=== PATIENT | female | born 1985 | race African-American/Black ===

== ENCOUNTER 2020-08-26 12:09 | Emergency (ER) | payer MEDICAID ==
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
== END 2020-08-26 13:30 | disposition home or self-care (01) ==
LOC: JD.ED 12:09
DX: T21.22XA Burn of second degree of abdominal wall, initial encounter (principal); Z72.0 Tobacco use; X16.XXXA Contact with hot heating appliances, radiators and pipes, initial encounter
CPT/HCPCS: 99283

== ENCOUNTER 2020-12-25 10:23 | Emergency (ER) | payer OTHER ==
[2020-12-25] MEDS ORDERED: Ketorolac 60 MG/2 ML SDV IM ONE (11:25)
--- NOTE | 2020-12-25 11:32 | EDM.PDOC ---
ED HPI GENERAL MEDICAL PROBLEM - General Chief Complaint: Abdominal Pain Stated Complaint: MENSTRUAL CRAMPING Time Seen by Provider: 12/25/20 11:10 Source of Information: Reports: Patient, RN Notes Reviewed History Limitations: Reports: No Limitations - History of Present Illness INITIAL COMMENTS - FREE TEXT/NARRATIVE: Patient is a 35-year-old female who presents to the ER for the evaluation of her dysmenorrhea. Patient notes this is an ongoing issue for her. Her family recently moved from [place] to [place], and she is not been able to set up with SOILS TECHNICIAN or primary care at this time. She does plan on getting seen at the [facility] for those purposes. States that she has been using Tylenol and ibuprofen quite a bit, and she thinks that she might be taking too much, she notes that is really not helping much at all. She did have a LEEP procedure done years ago, and it has created quite a bit of scar tissue and this is what happens when she starts her menses. Patient denies any other sick-like symptoms, fever/chills, cough/shortness of breath, nausea/vomiting/diarrhea. She has been told that she needs a hysterectomy, but again has not been able to follow-up with this. 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 ED EXAM, RENAL/ - Physical Exam Exam: See Below Exam Limited By: No Limitations General Appearance: Alert, WD/WN, No Apparent Distress Respiratory/Chest: No Respiratory Distress, Lungs Clear, Normal Breath Sounds, No Accessory Muscle Use, Chest Non-Tender Cardiovascular: Normal Peripheral Pulses, Regular Rate, Rhythm, No Edema GI/Abdominal: Normal Bowel Sounds, Soft, No Distention, No Mass, Tender (suprapubic/pelvic) Neurological: Alert, Oriented, Normal Cognition, No Motor/Sensory Deficits Psychiatric: Normal Affect, Normal Mood Skin Exam: Warm, Dry, Intact, Normal Color, No Rash Course - Vital Signs Last Recorded V/S: Last Vital Signs Temp 97.4 F 12/25/20 10:44 Pulse 76 12/25/20 10:44 Resp 16 12/25/20 10:44 BP 174/112 H 12/25/20 10:44 Pulse Ox 100 12/25/20 10:44 - Orders/Labs/Meds Meds: Medications Discontinued Medications Generic Name Dose Route Start Last Admin Trade Name Freq PRN Reason Stop Dose Admin Ketorolac Tromethamine 60 mg 12/25/20 11:25 12/25/20 11:34 Ketorolac 60 Mg/2 Ml Sdv IM 12/25/20 11:26 60 mg ONETIME ONE Administration - Re-Assessments/Exams Free Text/Narrative Re-Assessment/Exam: 12/25/20 11:38 Patient presents to the ER for her dysmenorrhea, we will go ahead and give her an injection of Toradol in the ER. And plan to give her some Toradol tablets to take at the onset of menses pain. Patient is okay with this plan and verbalized understanding. She does understand that she will need to follow-up with SOILS TECHNICIAN or family practice for ongoing management. Departure - Departure Time of Disposition: 11:30 Disposition: Home, Self-Care 01 Condition: Good Clinical Impression: Dysmenorrhea - Discharge Information *PRESCRIPTION DRUG MONITORING PROGRAM REVIEWED*: No *COPY OF PRESCRIPTION DRUG MONITORING REPORT IN PATIENT BRIDGER: No Prescriptions: Ketorolac [Toradol] 10 mg PO ASDIRECTED PRN #15 tab PRN Reason: Abdominal Pain Instructions: Dysmenorrhea, [id number] Referrals: PCP,None [Primary Care Provider] - Forms: ED Department Discharge Additional Instructions: You were evaluated in the ER today for your painful periods. You were given an injection of Toradol, and given some tablets of Toradol to take at the onset of menstrual pain. Do not take this more than 3 days in a row. Medication has been electronically prescribed to the [place] pharmacy, you may go there Sunday morning to picker and packer the prescription and take as directed. Recommend you set up with SOILS TECHNICIAN of choice, there are few providers in the area, our clinic number [phone]. The [facility] at [phone]. Any family practice provider or SOILS TECHNICIAN should be able to provide you with some of the services. Please return to the ER at any time if symptoms change or worsen. Sepsis Event Note (ED) - Evaluation Sepsis Screening Result: No Definite Risk - Focused Exam Vital Signs: Vital Signs Temp Pulse Resp BP Pulse Ox 12/25/20 10:44 97.4 F 76 16 174/112 H 100
== END 2020-12-25 11:57 | disposition home or self-care (01) ==
LOC: JD.ED 10:23
DX: N94.6 Dysmenorrhea, unspecified (principal)
CPT/HCPCS: 96372; 99283; J1885

== ENCOUNTER 2021-01-12 15:06 | Emergency (ER) | payer MEDICAID, OTHER ==
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
== END 2021-01-12 16:00 | disposition home or self-care (01) ==
LOC: JD.ED 15:06
DX: N94.6 Dysmenorrhea, unspecified (principal); Z72.0 Tobacco use
CPT/HCPCS: 99283

== ENCOUNTER 2021-01-30 11:03 | Emergency (ER) | payer MEDICAID ==
[2021-01-30] MEDS ORDERED: Ketorolac 60 MG/2 ML SDV IM ONE (11:26)
--- NOTE | 2021-01-30 11:34 | EDM.PDOC ---
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 She has a history of cervical canal stenosis related to LEEP procedure done many years ago. Reports that she has chronic pelvic pain as her menstrual blood has difficulty exiting her uterus. She states the pressure eventually builds up and then her uterus for drain which gives her relief. States the last time that this occurred was about 4 days ago. She reports that she bleeds continuously throughout the month. She is aware that she needs to have hysterectomy completed, however is not able to do so at this time. She saw Dr. Crook at [facility] and had a Depo-Provera shot last week and attempt to stop her periods to alleviate the symptoms. This will not begin working for at least a month. She was seen here previously and prescribed tramadol and oxycodone which she states do not help all that much. She took a tramadol this morning. She only takes oxycodone she Osmanypedro has to. She has taken fcuh-you-dssgjdr Tylenol and ibuprofen. Denies any possibility of as she is not sexually active. She reports the pain that she is having is her typical pelvic pain related to her cervical canal stenosis. 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 Other INDUSTRIAL TRAINING SPECIALIST History: LEEP procedure Musculoskeletal History: Reports: Arthritis Psychiatric History: Reports: Addiction, Anxiety, Depression Other Psychiatric History: "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 ED EXAM, RENAL/ - Physical Exam Exam: See Below Exam Limited By: No Limitations General Appearance: Alert, WD/WN, No Apparent Distress Respiratory/Chest: No Respiratory Distress, Lungs Clear, Normal Breath Sounds, No Accessory Muscle Use, Chest Non-Tender Cardiovascular: Normal Peripheral Pulses, Regular Rate, Rhythm, No Edema, No Gallop, No JVD, No Murmur, No Rub GI/Abdominal: Normal Bowel Sounds, Soft, No Organomegaly, No Distention, No Abnormal Bruit, No Mass, Tender (Suprapubic tenderness) Neurological: Alert, Oriented, CN II-XII Intact, Normal Cognition, Normal Gait, Normal Reflexes, No Motor/Sensory Deficits Psychiatric: Normal Affect, Normal Mood Skin Exam: Warm, Dry, Intact, Normal Color, No Rash Course - Vital Signs Last Recorded V/S: Last Vital Signs Temp 98 F 01/30/21 11:12 Pulse 89 01/30/21 11:12 Resp 16 01/30/21 11:12 BP 133/90 01/30/21 11:12 Pulse Ox 100 01/30/21 11:12 - Orders/Labs/Meds Meds: Medications Discontinued Medications Generic Name Dose Route Start Last Admin Trade Name Johnny PRN Reason Stop Dose Admin Ketorolac Tromethamine 60 mg 01/30/21 11:26 01/30/21 11:44 Ketorolac 60 Mg/2 Ml Sdv IM 01/30/21 11:27 60 mg ONETIME ONE Administration - Re-Assessments/Exams Free Text/Narrative Re-Assessment/Exam: 01/30/21 12:16 Patient is feeling much better after the Toradol. We'll discharge her home. I will send prescription for ibuprofen 800s. Recommend taking these once or twice a day and then use tramadol or oxycodone as needed for breakthrough pain. Recommend follow-up with Dr. Crook should symptoms not improve with Depo- Provera. Return to ER as needed. Discharge instructions as documented. Departure - Departure Time of Disposition: 12:16 Disposition: Home, Self-Care 01 Condition: Good Clinical Impression: Severe dysmenorrhea - Discharge Information *PRESCRIPTION DRUG MONITORING PROGRAM REVIEWED*: No *COPY OF PRESCRIPTION DRUG MONITORING REPORT IN PATIENT BRIDGER: No Instructions: Dysmenorrhea Referrals: Nunu Coelho PA-C [Primary Care Provider] - Mirian Bell MD [Physician] - Forms: ED Department Discharge Additional Instructions: You were seen in the emergency department today for ongoing pelvic pain. While in the ER, you received an injection of Toradol which did help your symptoms. Prescription has been sent for ibuprofen 800 mg. Recommend using these routinely for pain as long as it does not cause significant abdominal upset. Take them with food. You may use your tramadol or oxycodone as needed for breakthrough pain. If symptoms fail to improve over the next few weeks, recommend follow-up with Dr. Crook. Return to ER as needed. Sepsis Event Note (ED) - Focused Exam Vital Signs: Vital Signs Temp Pulse Resp BP Pulse Ox 01/30/21 11:12 98 F 89 16 133/90 100
== END 2021-01-30 12:23 | disposition home or self-care (01) ==
LOC: JD.ED 11:03
DX: N94.6 Dysmenorrhea, unspecified (principal); E66.9 Obesity, unspecified; Z68.41 Body mass index [BMI] 40.0-44.9, adult; Z72.0 Tobacco use
CPT/HCPCS: 96372; 99283; J1885

== ENCOUNTER 2021-04-23 15:33 | Emergency (ER) | payer OTHER, MEDICAID ==
[2021-04-23] MEDS ORDERED: Gentamicin 0.3% Ophth Soln 5 ML Bottle EARRT ONE (16:23)
[2021-04-23] MEDS ORDERED: predniSONE 20 MG Tab PO ONE (16:26)
[2021-04-23] MEDS ORDERED: diphenhydrAMINE 50 MG Cap PO ONE (16:27)
--- NOTE | 2021-04-23 16:33 | EDM.PDOC ---
ED HPI GENERAL MEDICAL PROBLEM - General Chief Complaint: General Stated Complaint: POSS EAR INFECTION Time Seen by Provider: 04/23/21 16:35 Source of Information: Reports: Patient History Limitations: Reports: No Limitations - History of Present Illness INITIAL COMMENTS - FREE TEXT/NARRATIVE: 35-year-old female presents to the ED with 3 different complaints. First 1 is diffuse itching and swelling and skin rash noted mostly on her face and adjacent to her right eye that have developed over the last 24 hours. She indicates that she got 2 cats in her home over the last 48hours help with the most problem. She did not believe she was allergic to the cats. However she has developed hives along the mandible chin under her right eye and adjacent to the lateral right eye. Second problem is right ear pain. This started within the last 2 days and is gradually gotten worse. She felt it was likely related to the Problem as well however on examination she has no otitis externa of the right ear canal. Third problem is exacerbation of chronic low back pain with known herniated disc. She is started a new job actually working 2 jobs and spending long hours walking and standing on her feet which is aggravated her chronic low back pain. She states she used to be on gabapentin for this daily and would like to return to this medication until she can get into her primary care provider. Onset: Gradual Onset Date: 04/22/21 (Facial rash symptoms started yesterday. Right ear symptoms started 2 days ago. Low back pain has been chronic for the last couple of weeks and gradually getting worse) Duration: Getting Worse Location: Reports: Face (Rashes on her face along the mandible chin under her right eye and adjacent to the lateral right eye and she has right ear pain secondary to an otitis externa.), Back (Exacerbation of chronic low back pain) Quality: Reports: Other (Facial rash is itchy and burning somewhat. Very minimally painful. Is been present all day long and getting worse.) Severity: Moderate Improves with: Reports: None Worsens with: Reports: Other Context: Denies: Activity (Rash seems to get worse with touching it.), Exercise, Lifting, Sick Contact, Trauma, Other Associated Symptoms: Reports: Rash (Facial rash as described above.). Denies: No Other Symptoms, Confusion, Chest Pain, Cough, cough w sputum, Diaphoresis, Fever/Chills, Headaches, Loss of Appetite, Malaise, Seizure, Shortness of Breath, Syncope Treatments TICKET SORTER: Reports: Other (see below) (She has taken no medication for this) Back Pain Score (Numeric/FACES): 0 face Pain Score (Numeric/FACES): 4 - Related Data Allergies Allergy/AdvReac Type Severity Reaction Status Date / Time No Known Allergies Allergy Verified 01/30/21 11:16 Home Meds: Home Meds Gabapentin [Neurontin] 600 mg PO BEDTIME #30 tab 04/23/21 [Rx] Past Medical History [employer] History: Reports: , Spontaneous Other [employer]ER History: LEEP procedure Musculoskeletal History: Reports: Arthritis, Back Pain, Chronic Psychiatric History: Reports: Addiction, Anxiety, Depression Other Psychiatric History: "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" Endocrine/Metabolic History: Reports: Obesity/BMI 30+ - Past Surgical History Female Surgical History: Reports: Section, D&C, LEEP Other Oncologic Surgeries/Procedures: cervical cysts removed from cervix Social & Family History - Tobacco Use Tobacco Use Status *Q: Current Every Day Tobacco User Years of Tobacco use: 20 Packs/Tins Daily: 0.8 - Caffeine Use Caffeine Use: Reports: Coffee - Recreational Drug Use Recreational Drug Use: Yes Drug Use in Last 12 Months: No Recreational Drug Type: Reports: Methamphetamine, Opium - Living Situation & Occupation Living situation: Reports: Single Occupation: Employed ED ROS GENERAL - Review of Systems Review Of Systems: See Below Constitutional: Denies: Fever, Chills, Malaise, Fatigue, Decreased Appetite, Weight Loss HEENT: Reports: Ear Pain (Right ear pain with no noted drainage x2 days) Respiratory: Reports: No Symptoms Cardiovascular: Reports: No Symptoms Endocrine: Reports: No Symptoms GI/Abdominal: Reports: No Symptoms : Reports: No Symptoms Musculoskeletal: Reports: Back Pain (Chronic low back pain with known herniated disc. She was supposed to have surgery on her lower back over a year ago but because of Covid and moving she lost her insurance for period of time and therefore surgery has not been completed. She started 2 new jobs recently and this involves standing for) Skin: Reports: Pruritis (Right facial rash chin undersurface right eye lateral right eye started yesterday but much worse today.) Neurological: Reports: Paresthesia (Right posterior lateral) Psychiatric: Reports: No Symptoms ( leg in the distribution of the L5 nerve root) Hematologic/Lymphatic: Reports: No Symptoms Immunologic: Reports: No Symptoms ED EXAM, GENERAL - Physical Exam Exam: See Below Exam Limited By: No Limitations General Appearance: Alert, WD/WN, No Apparent Distress, Other (Temperature is 36.1 degrees heart rate is 78 respiratory rate is 16 with O2 sats of 100%. BP 1 4482) Eye Exam: Bilateral Eye: Normal Inspection Ears: Other (Patient has a right otitis externa with maceration of the floor of the ear canal and early infection. Likely from shower water sitting in the ear canal too long.) Throat/Mouth: Normal Inspection, Normal Lips, Normal Oropharynx. No: Normal Teeth Head: Atraumatic, Normocephalic Neck: Normal Inspection, Supple, Non-Tender, Full Range of Motion. No: Lymphadenopathy (L), Lymphadenopathy (R) Respiratory/Chest: No Respiratory Distress, Lungs Clear, Normal Breath Sounds, No Accessory Muscle Use Back Exam: Decreased Range of Motion, Muscle Spasm ( forward flexion of 15 degrees and loss of extension by 10 degrees. right side Bilateral mild paraspinal muscle spasm slightly worse on the lumbar spine.), Paraspinal Tenderness (Bilaterally adjacent to the lumbar spine), Other (Patient has loss of) Extremities: Normal Inspection, Normal Range of Motion, Non-Tender, No Pedal Edema, Other (Patient has a positive bowstring sign on raising the left leg.) Neurological: Other (Patient has evidence of nerve root irritation on straight leg raising on the right side she mated to around 35 degrees.) Psychiatric: Normal Affect, Normal Mood Skin Exam: Rash (Patient rash mostly right hemifacial rash with large areas of urticaria) Course - Vital Signs Last Recorded V/S: Last Vital Signs Temp 36.1 C 04/23/21 15:41 Pulse 78 04/23/21 15:41 Resp 16 04/23/21 15:41 BP 144/82 H 04/23/21 15:41 Pulse Ox 100 04/23/21 15:41 - Orders/Labs/Meds Meds: Medications Discontinued Medications Generic Name Dose Route Start Last Admin Trade Name Freq PRN Reason Stop Dose Admin Diphenhydramine HCl 50 mg 04/23/21 16:27 04/23/21 16:37 Diphenhydramine 50 Mg Cap PO 04/23/21 16:28 50 mg ONETIME ONE Administration Gentamicin Sulfate 5 ml 04/23/21 16:23 04/23/21 16:33 Gentamicin 0.3% Ophth Soln 5 Ml Bottle EARRT 04/23/21 16:24 2 drop ONETIME ONE Administration Prednisone 30 mg 04/23/21 16:26 04/23/21 16:37 Prednisone 20 Mg Tab PO 04/23/21 16:27 30 mg ONETIME ONE Administration - Radiology Interpretation Free Text/Narrative:: 35-year-old female presents to the ED with an exacerbation of her chronic low back pain. She has a known disc herniation was scheduled to have surgery on her lower back a year ago but due to the financial constraints COVID-19 illness and moving and loss of insurance transiently this surgery was never carried out. She was unemployed up until recently but is currently working 2 jobs spending long hours on her feet and standing which is aggravated her chronic low back pain. She is requesting a prescription for gabapentin 600 mg once daily at bedtime which she has taken in the past with good effect. Prescription written in this regard. Second problem is a facial rash which is very itchy and somewhat burning in nature which started yesterday. Examination reveals she has urticaria on the right hemiface face under her eye lateral to her eye involving her mandible and chin area. She indicates that she got 2 cats within the last 2 days to help with mice problem around her home. I suspect that she has come in contact with cat dander or laid on a pillow that the cat has laid on etc. to have caused the hives to only develop in the one side of her face. She will take Benadryl 50 mg every 6 hours as needed for this. I will also give her 30 mg of prednisone by mouth once in the ED. Third problem was right ear pain and on inspection she has a right otitis externa. This will be treated with Garamycin eardrops 2 drops to the right ear canal 4 times daily for the next 7 days to clear up infection. She is advised to try and keep all water out of the ear after showering etc. She will be following up with her primary care provider within the next 2 weeks for further medication for her low back. Departure - Departure Time of Disposition: 16:28 Disposition: Home, Self-Care 01 Condition: Fair Clinical Impression: Urticaria Otitis externa Qualifiers: Otitis externa type: noninfectious Noninfectious otitis externa type: unspecified noninfectious type Chronicity: acute Laterality: right Qualified Code(s): H60.501 - Unspecified acute noninfective otitis externa, right ear Low back pain with sciatica Qualifiers: Chronicity: chronic Back pain laterality: unspecified - Discharge Information *PRESCRIPTION DRUG MONITORING PROGRAM REVIEWED*: Not Applicable *COPY OF PRESCRIPTION DRUG MONITORING REPORT IN PATIENT BRIDGER: Not Applicable Prescriptions: Gabapentin [Neurontin] 600 mg PO BEDTIME #30 tab Instructions: Hives Referrals: Nunu Coelho PA-C [Primary Care Provider] - Forms: ED Department Discharge Additional Instructions: Evaluation in the emergency room today in regards to several problems. Facial rash is due to urticaria or development of hives likely from coming in contact with a cat which has been introduced into your home. It is very important that if the cats are going to stay in the home that if you touch them or pet them or come in contact with anything that they have been on leaving behind their dander or for and you touch it and touch her face she will develop an allergic response. At present it should be treated with Benadryl 50 mg every 6 hours if it is bothering you in terms of itch. I have given you a dose of Benadryl 50 mg by mouth and initial dose of prednisone 30 mg by mouth in the ED which will take 4 to 6 hours to start to work. In regards to the right ear pain you have an infection in the floor of the ear canal which we call otitis externa. The cause of this is unclear but it often can be just shower water that sits in the bottom of the ear for too long and cracks in the skin and the germs in the ear from her skin go under the skin and cause an infection. It should be treated with Garamycin eardrops 2 drops to the right ear and sit up after putting the drops in for at least 5 minutes 4 times daily for at least 7 days to clear this up completely. In regards to chronic low back pain which has been exacerbated by recent change in work suggest gabapentin 600 mg at bedtime starting about an hour before going to bed as it does cause some degree of sedation. Follow-up with primary care physician in this regard. Sepsis Event Note (ED) - Evaluation Sepsis Screening Result: No Definite Risk - Focused Exam Vital Signs: Vital Signs Temp Pulse Resp BP Pulse Ox 04/23/21 15:41 36.1 C 78 16 144/82 H 100
== END 2021-04-23 16:45 | disposition home or self-care (01) ==
LOC: JD.ED 15:33
DX: L50.9 Urticaria, unspecified (principal); H60.501 Unspecified acute noninfective otitis externa, right ear; M54.40 Lumbago with sciatica, unspecified side; E66.9 Obesity, unspecified; Z68.41 Body mass index [BMI] 40.0-44.9, adult; Z72.0 Tobacco use
CPT/HCPCS: 99283; J7512; Q0163

== ENCOUNTER 2021-11-16 10:20 | Emergency (ER) | payer MEDICAID, OTHER ==
[2021-11-16 12:31] LABS: ESTIMATED GFR > 60 mL/min (>60)
== END 2021-11-16 13:15 | disposition home or self-care (01) ==
LOC: JD.ED 10:20
DX: R60.0 Localized edema (principal); F17.210 Nicotine dependence, cigarettes, uncomplicated; E66.9 Obesity, unspecified; Z68.43 Body mass index [BMI] 50.0-59.9, adult
CPT/HCPCS: 36415; 80053; 83735; 84443; 85025; 85379; 93970; 93970-26; 99283; 99284-25

== ENCOUNTER 2022-07-31 13:44 | Emergency (ER) | payer MEDICAID ==
[2022-07-31] MEDS ORDERED: Ketorolac 60 MG/2 ML SDV IM ONE (14:19)
[2022-07-31 14:42] LABS: CORONAVIRUS COVID-19 NAA NEGATIVE (NEGATIVE)
[2022-07-31 15:01] LABS: STREP A BY PCR DETECTED (NOT DETECT)
[2022-07-31] MEDS ORDERED: HYDROmorphone 1 MG/ML Syringe IM ONE (15:16)
== END 2022-07-31 15:36 | disposition home or self-care (01) ==
LOC: JD.ED 13:44
DX: J02.0 Streptococcal pharyngitis (principal); E66.9 Obesity, unspecified; F17.210 Nicotine dependence, cigarettes, uncomplicated; Z20.822 Contact with and (suspected) exposure to COVID-19; Z68.42 Body mass index [BMI] 45.0-49.9, adult
CPT/HCPCS: 0241U; 87651; 96372; 99283; J1170; J1885

== ENCOUNTER 2022-09-21 13:31 | Emergency (ER) | payer MEDICAID | END 2022-09-21 14:58 | disposition home or self-care (01) | LOC: JD.ED 13:31 | DX: K02.9 Dental caries, unspecified (principal); E66.9 Obesity, unspecified; Z68.42 Body mass index [BMI] 45.0-49.9, adult | CPT/HCPCS: 99282 ==

== ENCOUNTER 2022-10-22 15:04 | Emergency (ER) | payer MEDICAID ==
[2022-10-22] MEDS ORDERED: Sodium Chloride 0.9% 10 ML Syringe FLUSH PRN (15:32)
[2022-10-22] MEDS ORDERED: Ketorolac 30 MG/ML SDV IVPUSH ONE (15:35)
[2022-10-22 16:13] LABS: BASOPHILS ABSOLUTE AUTO 0.04 K/mm3 (0.01-0.08); BASOPHILS PERCENT AUTO 0.4 % (0.1-1.2); EOSINOPHILS ABSOLUTE AUTO 0.36 K/mm3 (0.04-0.36); HEMATOCRIT 40.2 % (34.1-44.9); HEMOGLOBIN 13.6 gm/dl (11.2-15.7); IMMATURE GRAN ABSOLUTE AUTO 0.03 K/mm3 (0.00-0.10); IMMATURE GRAN PERCENT AUTO 0.3 % (<=1.0); LYMPHOCYTES ABSOLUTE AUTO 3.01 K/mm3 (1.18-3.74); MEAN CORPUSCULAR HEMOGLOBIN 28.1 pg (25.6-32.2); MEAN CORPUSCULAR HGB CONC 33.8 g/dl (32.2-35.5); MEAN CORPUSCULAR VOLUME 83.1 fl (79.4-94.8); MEAN PLATELET VOLUME 8.9 fl (9.4-12.3); MONOCYTES ABSOLUTE AUTO 0.53 K/mm3 (0.24-0.36); MONOCYTES PERCENT AUTO 5.8 % (4.7-12.5); NEUTROPHILS ABSOLUTE AUTO 5.14 K/mm3 (1.56-6.13); NEUTROPHILS PERCENT AUTO 56.5 % (34.0-71.1); PLATELET COUNT,PLT 324 K/mm3 (182-369); RED BLOOD CELL COUNT 4.84 M/mm3 (3.98-5.22); WHITE BLOOD CELL COUNT,WBC 9.11 K/mm3 (3.98-10.04)
[2022-10-22 16:15] LABS: APPEARANCE,URINE CLEAR (Clear); BILIRUBIN,URINE NEGATIVE (Negative); COLOR,URINE YELLOW (Yellow); GLUCOSE,URINE NEGATIVE (Negative); KETONES,URINE NEGATIVE (Negative); LEUKOCYTE ESTERASE,URINE NEGATIVE (Negative); NITRITE,URINE NEGATIVE (Negative); OCCULT BLOOD,URINE NEGATIVE (Negative); PROTEIN,URINE NEGATIVE (Negative); UROBILINOGEN,URINE 0.2 (0.2-1.0)
[2022-10-22] MEDS ORDERED: Sodium Chloride 0.9% 10 ML Syringe FLUSH ONE (16:15)
[2022-10-22] MEDS ORDERED: Iopamidol 755 Mg/ML 100 ML Bottle IVPUSH ONE (16:15)
[2022-10-22] MEDS ORDERED: Iopamidol 612 MG/ML 100 ML Bottle IVPUSH ONE (16:28)
[2022-10-22 16:32] LABS: ALBUMIN 3.5 g/dl (3.4-5.0); ANION GAP 10.7 (5-15); BILIRUBIN TOTAL 0.2 mg/dL (0.2-1.0); C-REACTIVE PROTEIN 2.3 mg/dL (<1.0); CALCIUM 8.6 mg/dL (8.5-10.1); EST CRCL DRUG DOSING (CG) 85.26 mL/min; MAGNESIUM 2.1 mg/dL (1.8-2.4); POTASSIUM,K 3.7 mEq/L (3.5-5.1); PROTEIN TOTAL,TP 7.2 g/dl (6.4-8.2)
== END 2022-10-22 17:45 | disposition home or self-care (01) ==
LOC: JD.ED 15:04
DX: R10.30 Lower abdominal pain, unspecified (principal); E66.9 Obesity, unspecified; Z98.890 Other specified postprocedural states; Z68.42 Body mass index [BMI] 45.0-49.9, adult
CPT/HCPCS: 36415; 74177; 80053; 81003; 81025; 83735; 85025; 86140; 96374; 99284; J1885; J3490; Q9967

== ENCOUNTER 2022-10-23 19:11 | Emergency (ER) | payer MEDICAID ==
[2022-10-23] MEDS ORDERED: Orphenadrine 100 MG Tab.ER PO STA (20:13)
[2022-10-23] MEDS ORDERED: Ketorolac 30 MG/ML SDV IM ONE (20:13)
== END 2022-10-23 20:37 | disposition home or self-care (01) ==
LOC: JD.ED 19:11
DX: R10.2 Pelvic and perineal pain (principal); F17.290 Nicotine dependence, other tobacco product, uncomplicated; E66.9 Obesity, unspecified; Z68.30 Body mass index [BMI] 30.0-30.9, adult
CPT/HCPCS: 96372; 99283; A9270; J1885

== ENCOUNTER 2022-11-08 13:42 | Emergency (ER) | payer MEDICAID ==
[2022-11-08] MEDS ORDERED: Ketorolac 60 MG/2 ML SDV IM ONE (14:21)
[2022-11-08] MEDS ORDERED: Orphenadrine 100 MG Tab.ER PO ONE (14:21)
[2022-11-08] MEDS ORDERED: HYDROmorphone 1 MG/ML Syringe IM ONE (15:08)
== END 2022-11-08 16:45 | disposition home or self-care (01) ==
LOC: JD.ED 13:42
DX: N85.8 Other specified noninflammatory disorders of uterus (principal); E66.9 Obesity, unspecified; Z68.42 Body mass index [BMI] 45.0-49.9, adult; Z98.890 Other specified postprocedural states
CPT/HCPCS: 96372; 99283; A9270; J1170; J1885

== ENCOUNTER 2022-11-18 08:46 | Emergency (ER) | payer MEDICAID | END 2022-11-18 09:33 | disposition left against medical advice (07) | LOC: JD.ED 08:46 | DX: Z76.5 Malingerer [conscious simulation] (principal); E66.9 Obesity, unspecified; Z68.42 Body mass index [BMI] 45.0-49.9, adult | CPT/HCPCS: 99282; 99283 ==

== ENCOUNTER 2023-08-13 12:27 | Observation (INO) | payer MEDICAID ==
[2023-08-13] MEDS: Ketorolac 30 MG/ML SDV IVPUSH ONE (14:00)
[2023-08-13] MEDS: Sodium Chloride 0.9% 1,000 ML IV STA (14:00)
[2023-08-13] MEDS: Ondansetron 4 MG/2 ML SDV IVPUSH ONE (14:00)
[2023-08-13] MEDS: HYDROmorphone 0.5 MG/0.5 ML Syringe IVPUSH ONE ×2 (14:00→19:42)
[2023-08-13] MEDS: Sodium Chloride 0.9% 10 ML Syringe FLUSH PRN (14:07)
[2023-08-13 14:16] LABS: BASOPHILS PERCENT AUTO 0.2 % (0.0-1.0); EOSINOPHILS PERCENT AUTO 0.1 % (0.0-6.0); HEMATOCRIT 37.3 % (37.0-47.0); IMMATURE GRAN ABSOLUTE AUTO 0.09 K/mm3 (0.00-0.05); IMMATURE GRAN PERCENT AUTO 0.5 % (0.0-0.4); LYMPHOCYTES ABSOLUTE AUTO 0.7 K/mm3 (1.0-4.8); LYMPHOCYTES PERCENT AUTO 3.5 % (24.0-44.0); MEAN CORPUSCULAR HEMOGLOBIN 28.1 pg (28.0-32.0); MEAN CORPUSCULAR HGB CONC 34.9 g/dl (32.0-36.0); MEAN CORPUSCULAR VOLUME 80.7 fl (83.0-99.0); MONOCYTES ABSOLUTE AUTO 0.6 K/mm3 (0.0-0.8); MONOCYTES PERCENT AUTO 2.9 % (0.0-8.0); NEUTROPHILS ABSOLUTE AUTO 18.2 K/mm3 (1.8-7.7); NEUTROPHILS PERCENT AUTO 92.8 % (41.0-71.0); PLATELET COUNT,PLT 302 K/mm3 (150-400); RED BLOOD CELL COUNT 4.62 M/mm3 (4.10-5.30); WHITE BLOOD CELL COUNT,WBC 19.54 K/mm3 (3.9-11.3)
[2023-08-13 14:39] LABS: A/G RATIO 0.8 (1-2); ALBUMIN 3.1 g/dl (3.4-5.0); ANION GAP 14.6 (5-15); BUN/CREATININE RATIO 13.3 (14-18); C-REACTIVE PROTEIN 10.96 mg/dL (<0.30); CALCIUM 8.9 mg/dL (8.5-10.1); CREATININE 0.6 mg/dL (0.55-1.02); EST CRCL DRUG DOSING (CG) 140.7 mL/min; POTASSIUM,K 3.6 mEq/L (3.5-5.1); PROTEIN TOTAL,TP 6.8 g/dl (6.4-8.2)
[2023-08-13] MEDS ORDERED: Sodium Chloride 0.9% 10 ML Syringe FLUSH PRN (15:22)
[2023-08-13] MEDS: Iopamidol 612 MG/ML 100 ML Bottle IVPUSH ONE (15:45)
[2023-08-13 16:12] LABS: APPEARANCE,URINE SLT CLOUDY (Clear); BILIRUBIN,URINE NEGATIVE (Negative); COLOR,URINE YELLOW (Yellow); GLUCOSE,URINE NEGATIVE (Negative); KETONES,URINE NEGATIVE (Negative); LEUKOCYTE ESTERASE,URINE TRACE (Negative); NITRITE,URINE NEGATIVE (Negative); OCCULT BLOOD,URINE 2+ (Negative); PH,URINE 6.5 (5.0-8.0); PROTEIN,URINE NEGATIVE (Negative); UROBILINOGEN,URINE 0.2 (0.2-1.0)
[2023-08-13 16:25] LABS: BACTERIA,URINE FEW /hpf (FEW); MUCUS,URINE FEW /hpf (FEW); WBC,URINE 0-5 /hpf (0-5)
[2023-08-13] MEDS ORDERED: Ondansetron 4 MG/2 ML SDV IVPUSH PRN (19:10)
[2023-08-13] MEDS: Doxycycline Monohydrate 100 MG Cap PO SCH (19:42)
[2023-08-13] MEDS: metroNIDAZOLE/Normal Saline 500 MG in Premix Bag 1 BAG IV SCH (19:42)
[2023-08-13] MEDS: cefTRIAXone 1 GM in Sodium Chloride 0.9% 100 ML IV SCH (19:43)
[2023-08-13] MEDS: Ketorolac 30 MG/ML SDV IVPUSH SCH (20:00)
[2023-08-13 20:37] LABS: C. TRACHOMATIS BY PCR NOT DETECTED; N. GONORRHOEAE BY PCR NOT DETECTED
[2023-08-14] MEDS: Acetaminophen 325 MG Tab PO PRN (05:36)
[2023-08-14] MEDS: Morphine 2 MG/ML SYRINGE IVPUSH PRN (06:32)
[2023-08-14 07:03] LABS: HEMATOCRIT 34.6 % (37.0-47.0); HEMOGLOBIN 12.1 gm/dl (12.0-16.0); MEAN CORPUSCULAR HEMOGLOBIN 27.7 pg (28.0-32.0); MEAN CORPUSCULAR VOLUME 79.2 fl (83.0-99.0); MEAN PLATELET VOLUME 9.2 fl (9.4-12.3); PLATELET COUNT,PLT 281 K/mm3 (150-400); RED BLOOD CELL COUNT 4.37 M/mm3 (4.10-5.30); WHITE BLOOD CELL COUNT,WBC 20.85 K/mm3 (3.9-11.3)
[2023-08-14] MEDS: Ibuprofen 600 MG Tab PO PRN (08:53)
[2023-08-14] MEDS: HYDROmorphone 2 MG Tab PO PRN (11:10)
== END 2023-08-14 14:25 | disposition home or self-care (01) ==
LOC: JD.ED 12:27 → JD.MS 19:10
PROVIDERS: ADMIT Obstetrics & Gynecology; ATTEND Obstetrics & Gynecology
DX: N70.93 Salpingitis and oophoritis, unspecified (principal); N73.0 Acute parametritis and pelvic cellulitis; F32.A Depression, unspecified; F17.210 Nicotine dependence, cigarettes, uncomplicated
CPT/HCPCS: 0352U; 36415; 74177; 76830; 80053; 81001; 84703; 85025; 85027; 86140; 87491; 87591; A9270; J0696; J1170; J1836; J1885; J2270; J2405; J3490; J7030; Q9967